=== PATIENT | male | born 2000 | race Caucasian/White ===

== ENCOUNTER 2020-05-12 21:24 | Emergency (ER) | payer MEDICAID ==
[~2020-05-12] VITALS: Ht 167.6 cm; Wt 106.6 kg
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
--- NOTE | 2020-05-12 21:51 | NUR ---
ER Dr. Yousif at bedside examining patient.
[2020-05-12 22:06] VITALS: BP_SYST 133
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
[2020-05-12 23:05] VITALS: BP_SYST 133
--- NOTE | 2020-05-12 23:07 | NUR ---
Patient given written and verbal discharge instructions and verbalizes understanding. ER MD Dr. Yousif discussed with patient the results and treatment provided. Patient in stable condition. ID arm band removed. Rx of given. Patient educated on pain management and to follow up with PMD. Pain Scale 0/10. Opportunity for questions provided and answered. Medication side effect fact sheet provided.
== END 2020-05-12 23:05 ==
LOC: SED 21:24
DX: M25.561 Pain in right knee (principal); R00.0 Tachycardia, unspecified; F12.90 Cannabis use, unspecified, uncomplicated; F17.210 Nicotine dependence, cigarettes, uncomplicated; V49.50XA Passenger injured in collision with unspecified motor vehicles in traffic accident, initial encounter; Y93.89 Activity, other specified; Y92.89 Other specified places as the place of occurrence of the external cause; Y99.8 Other external cause status
CPT/HCPCS: 71045; 93005; 99283